=== PATIENT | female | born 1980 | race African-American/Black ===

== ENCOUNTER 2016-08-01 20:13 | Emergency (ER) | payer SELFPAY ==
[~2016-08-01] VITALS: Ht 167.6 cm; Wt 90.7 kg
[~2016-08-01 20:13] MED LIST: COLACE100 MG ORAL; IBUPROFEN600 MG ORAL; NKM; NORCO 5-325 TA1 EACH ORAL; ZOFRAN ODT4 MG ORAL
[2016-08-01 21:17] VITALS: BP 133/88
[2016-08-01] MEDS ORDERED: Ciprofloxacin 500mg tab ORAL ONE (21:45)
[2016-08-01] MEDS ORDERED: Pseudoephedrine 30mg tab ORAL ONE (21:45)
[2016-08-01] MEDS ORDERED: CORTISPORIN EAR10 ML LEFT EAR (21:48)
[2016-08-01] MEDS ORDERED: CHLORPHENIRAMINE4 M1 PO (21:48)
[2016-08-01] MEDS ORDERED: CIPRO500 MG PO (21:48)
[2016-08-01] MEDS ORDERED: IBUPROFEN600 MG ORAL (21:48)
[2016-08-01] MEDS ORDERED: TRAMADOL HCL50 MG ORAL (21:48)
[2016-08-01 21:52] VITALS: BP 133/88
--- NOTE | 2016-08-01 21:54 | Emergency Room Report ---
History of Present Illness General Chief Complaint: Earache Source: Patient Present Illness HPI Patient presents with left ear pain. It started this morning. She is working at a refinery and uses earplugs. She believes earplugs fell out yesterday and she was exposed to loud noises. She denies any fever. The pain radiates from her ear down into side of her neck. Pain 10/10, sharp and pressure, constant. No URI symptoms. Some headache from ear pain. No NVD, dysuria, trauma, change in hearing (except transiently after loud noise). Allergies: Coded Allergies: No Known Allergies (Unverified , 06/28/14) Patient History Past Medical History: see triage record Social History: Denies: smoking Social History Narrative works at [employer] Last Menstrual Period: 07/08/16 Now: No Reviewed Nursing Documentation: PMH: Agreed, PSxH: Agreed Nursing Documentation-PMH Past Medical History: No Stated History Hx Hypertension: No Hx Diabetes: No Review of Systems All Other Systems: negative except mentioned in HPI Physical Exam Vital Signs Date Time Temp Pulse Resp B/P Pulse Ox O2 Delivery O2 Flow Rate FiO2 08/01/16 20:50 97.7 105 15 133/88 100 Room Air General Appearance: well appearing, no apparent distress, GCS 15, non-toxic Head: normocephalic, atraumatic Eyes: bilateral eye PERRL, bilateral eye normal inspection ENT: hearing grossly normal, normal pharynx, normal voice, moist mucus membranes, other - L TM with some fluid. Pinna slight tender with pulling. Minimal mastoid tenderness. Neck: full range of motion, supple, no meningismus, no bony tend Respiratory: lungs clear, no respiratory distress, speaking full sentences Cardiovascular #1: regular rate, rhythm Cardiovascular #2: 2+ radial (R) Gastrointestinal: normal inspection Musculoskeletal: digits/nails normal, gait/station normal, normal range of motion Neurologic: alert, oriented x3, normal gait, grossly normal Psychiatric: mood/affect normal Skin: no rash Medical Decision Making Diagnostic Impression: Primary Impression: Earache, left ER Course Patient presents with ear pain L. DDx: otitis media, externa, mastoiditis amongst others. Exam c/w both otitis media and externa. Will tx with cipro, drops, decongestant and analgesia. Patient stable for outpatient observation and treatment. Last Vital Signs Date Time Temp Pulse Resp B/P Pulse Ox O2 Delivery O2 Flow Rate FiO2 08/01/16 21:52 97.7 86 18 133/88 100 Room Air Status: improved Disposition: HOME, SELF-CARE Condition: Improved Scripts Neomycin/Polymyxin B Sulf/Hc* (CORTISPORIN EAR SOLUTION*) 10 Ml Solution 3 DROP LEFT EAR QID, #10 ML 0 Refills Prov: Giovani Geronimo M.D. 08/01/16 Chlorpheniramine Maleate (Chlorpheniramine Maleate) 4 Mg Tablet 4 MG PO Q6HR Y for congestion, #14 TAB Prov: Giovani Geronimo M.D. 08/01/16 Tramadol Hcl* (ULTRAM*) 50 Mg Tablet 50 MG ORAL Q6H Y for For Pain, #6 TAB 0 Refills Prov: Giovani Geronimo M.D. 08/01/16 Ibuprofen* (MOTRIN*) 600 Mg Tablet 600 MG ORAL Q6H Y for For Pain, #20 TAB Prov: Giovani Geronimo M.D. 08/01/16 Ciprofloxacin* (CIPRO*) 500 Mg Tablet 500 MG PO BID, #14 TAB Prov: Giovani Geronimo M.D. 08/01/16 Departure Forms: Return to Work Return to Work in (Days): 2 Return to Work Date: Aug 03, 2016 Patient Instructions: Earache Additional Instructions: This infection might involve both the outer and inner ear. See your doctor in the next 2 days. Giovani Geronimo M.D. Aug 01, 2016 21:54
== END 2016-08-01 21:52 | disposition home or self-care (01) ==
LOC: EMR 21:25
DX: H66.92 Otitis media, unspecified, left ear (principal); H60.92 Unspecified otitis externa, left ear
CPT/HCPCS: 99284

== ENCOUNTER 2020-02-09 08:29 | Emergency (ER) | payer BC ==
[~2020-02-09] VITALS: Ht 165.1 cm; Wt 127.0 kg
[~2020-02-09 08:29] MED LIST changes: +CHLORPHENIRAMINE4 M1 PO; +CIPRO500 MG PO; +CORTISPORIN EAR10 ML LEFT EAR; +TRAMADOL HCL50 MG ORAL
--- NOTE | 2020-02-09 08:45 | NUR ---
ED Nurse Note: Pt walked in from home c/o heart paliplitations that started in the monring. Pt also reports difficulty walking long distances without feeling lightheaded. Pt c/o soreness on back of bilateral calves x 2 days. Pt had bariatric surgery on 02/03 at [facility]. Respirations even and unlabored on room air. Vitals stable as documented. A+Ox4, speaking in full sentences, ambulatory with steady gait.
--- NOTE | 2020-02-09 08:50 | Emergency Room Report ---
History of Present Illness General Chief Complaint: Palpitations Source: Patient Present Illness HPI Patient is a 39-year-old male who presents after increased palpitations and bilateral lower extremity soreness. Prior history of gastric sleeve surgery Tuesday. Reports having some decreased bowel movements. Denies any nausea or vomiting or abdominal pain. Had no prior known cardiac history. she denies any new leg swelling. Had laparoscopic procedure. This was performed at [facility]. She had negative coronavirus testing last week. Denies any fever. Allergies: Coded Allergies: AMOXICILLIN (Verified Allergy, Unknown, 02/09/20) PENICILLINS (Verified Allergy, Unknown, 02/09/20) COVID-19 Screening Contact w/high risk pt: No Experienced COVID-19 symptoms?: No COVID-19 Testing performed [employer]ODUCTION [employer]: Yes COVID-19 Screening: Negative COVID-19 COVID-19 Testing Source: 02/04/20 Patient History Past Medical History: see triage record Last Menstrual Period: 01/21/20 Now: No Reviewed Nursing Documentation: PMH: Agreed; PSxH: Agreed Nursing Documentation-PMH Past Medical History: No History, Except For Hx Hypertension: No Hx Diabetes: No Review of Systems All Other Systems: negative except mentioned in HPI Physical Exam Vital Signs Date Time Temp Pulse Resp B/P (MAP) Pulse Ox O2 Delivery O2 Flow Rate FiO2 02/09/20 08:40 96.8 91 18 115/81 (92) 99 Room Air Sp02 EP Interpretation: reviewed, normal General Appearance: normal inspection, well appearing, no apparent distress, alert, GCS 15, obese Head: atraumatic ENT: normal ENT inspection, hearing grossly normal, normal voice Neck: normal inspection, full range of motion, supple, no bony tend Respiratory: normal inspection, lungs clear, normal breath sounds, no respiratory distress, no retraction, no wheezing Cardiovascular #1: regular rate, rhythm, no edema Gastrointestinal: normal inspection, normal bowel sounds, non tender, soft, no guarding, no hernia, other - Healing incisions with skin glue no erythema Genitourinary: no CVA tenderness Musculoskeletal: normal inspection, back normal, normal range of motion Neurologic: alert, motor strength/tone normal, record label intern III-XII nml as tested, oriented x3, responsive, speech normal, normal inspection Psychiatric: normal inspection, judgement/insight normal, mood/affect normal Skin: no rash Medical Decision Making Diagnostic Impression: Primary Impression: Palpitations Additional Impression: Dehydration, mild ER Course Presented for bilateral lower extremity pain as well as palpitations. Differential diagnosis include was not limited to dehydration, anemia, myocardial infarction, pulmonary embolism among others. Because of complexity of patient's case laboratory tests and imaging studies were ordered.Laboratory testing was unremarkable other mild elevation of the BUN and creatinine. Patient started on IV fluids. Duplex ultrasound showed no evidence of deep venous thrombosis. EKG interpreted by me showed normal sinus rhythm with a rate of [address] or T wave changes. Patient it was noted to be taking some narcotic pain medication due to recent surgery. Patient was advised to reduce her dosages of medications. No evidence of any abdominal tenderness or discomfort. Patient was advised to return if she had any worsening of condition or other concerns. All questions were answered and patient was agreeable with discharge plan. Patient states that she will follow- up with Dr. Cunningham on Tuesday. This medical record is generated with [employer] warehouse order selector software. There may be some warehouse order selector discrepancies related to use of this software Labs Test 02/09/20 09:00 White Blood Count 6.0 K/UL (4.8-10.8) Red Blood Count 4.89 M/UL (4.20-5.40) Hemoglobin 14.0 G/DL (12.0-16.0) Hematocrit 42.9 % (37.0-47.0) Mean Corpuscular Volume 88 FL (80-99) Mean Corpuscular Hemoglobin 28.6 PG (27.0-31.0) Mean Corpuscular Hemoglobin Concent 32.6 G/DL (32.0-36.0) Red Cell Distribution Width 13.0 % (11.6-14.8) Platelet Count 296 K/UL (150-450) Mean Platelet Volume 6.6 FL (6.5-10.1) Neutrophils (%) (Auto) 49.0 % (45.0-75.0) Lymphocytes (%) (Auto) 38.0 % (20.0-45.0) Monocytes (%) (Auto) 9.0 % (1.0-10.0) Eosinophils (%) (Auto) 2.5 % (0.0-3.0) Basophils (%) (Auto) 1.5 % (0.0-2.0) Prothrombin Time 11.3 SEC (9.30-11.50) Prothromb Time International Ratio 1.0 (0.9-1.1) Activated Partial Thromboplast Time 30 SEC (23-33) Urine Color Yellow Urine Appearance Slightly cloudy Urine pH 5 (4.5-8.0) Urine Specific [place] 1.030 (1.005-1.035) Urine Protein 1+ (NEGATIVE) Urine Glucose (UA) Negative (NEGATIVE) Urine Ketones 3+ (NEGATIVE) Urine Blood Negative (NEGATIVE) Urine Nitrite Negative (NEGATIVE) Urine Bilirubin Negative (NEGATIVE) Urine Urobilinogen Normal MG/DL (0.0-1.0) Urine Leukocyte Esterase Negative (NEGATIVE) Urine RBC 0-2 /HPF (0 - 2) Urine WBC 0-2 /HPF (0 - 2) Urine Squamous Epithelial Cells Occasional /LPF Urine Bacteria Occasional /HPF (NONE) Sodium Level 140 MMOL/L (136-145) Potassium Level 3.7 MMOL/L (3.5-5.1) Chloride Level 102 MMOL/L (98-107) Carbon Dioxide Level 25 MMOL/L (21-32) Anion Gap 13 mmol/L (5-15) Blood Urea Nitrogen 19 mg/dL (7-18) Creatinine 1.2 MG/DL (0.55-1.30) Estimat Glomerular Filtration Rate > 60 mL/min (>60) Glucose Level 76 MG/DL (74-106) Calcium Level 9.5 MG/DL (8.5-10.1) Troponin I 0.000 ng/mL (0.000-0.056) Lipase 216 U/L (73-393) EKG Diagnostic Results Rate: normal - 87 Rhythm: NSR ST Segments: no acute changes Last Vital Signs Date Time Temp Pulse Resp B/P (MAP) Pulse Ox O2 Delivery O2 Flow Rate FiO2 02/09/20 08:40 96.8 91 18 115/81 (92) 99 Room Air Status: improved Disposition: HOME, SELF-CARE Condition: Stable Alan Nguyen MD Feb 09, 2020 08:49
[2020-02-09 09:00] VITALS: BP 112/76
--- NOTE | 2020-02-09 09:32 | NUR ---
ED Nurse Note: US @ bedside
[2020-02-09 09:44] LABS: BASOPHILS % (AUTO) 1.5 % (0.0-2.0); EOSINOPHILS % (AUTO) 2.5 % (0.0-3.0); HEMATOCRIT 42.9 % (37.0-47.0); MEAN CORPUSCULAR VOLUME 88 FL (80-99); PLATELET COUNT 296 K/UL (150-450); RED BLOOD COUNT 4.89 M/UL (4.20-5.40)
[2020-02-09 09:45] LABS: APPEARANCE,URINE SLIGHTLY CLOUDY; BILIRUBIN, URINE NEGATIVE (NEGATIVE); COLOR,URINE YELLOW; GLUCOSE, URINE (UA) NEGATIVE (NEGATIVE); KETONES,URINE 3+ (NEGATIVE); LEUKOCYTE ESTERASE ,URINE NEGATIVE (NEGATIVE); NITRITE,URINE NEGATIVE (NEGATIVE); PH,URINE 5 (4.5-8.0); PROTEIN,URINE 1+ (NEGATIVE); UROBILINOGEN,URINE NORMAL MG/DL (0.0-1.0)
--- NOTE | 2020-02-09 09:58 | Diagnostic Imaging Report ---
EXAM: US Duplex Bilateral Lower Extremities Veins CLINICAL HISTORY: PAIN TECHNIQUE: Real-time duplex ultrasound scan of the bilateral lower extremity veins integrating B-mode two-dimensional vascular structure, Doppler spectral analysis, color flow Doppler imaging and compression. COMPARISON: No relevant prior studies available. FINDINGS: Right deep veins: Unremarkable. No DVT in the right common femoral, femoral, proximal deep femoral or popliteal veins. The veins demonstrate normal color flow, are normally compressible, with normal phasic flow and/or augmentation response. Right superficial veins: Unremarkable. No thrombus in the visualized right great saphenous vein. Left deep veins: Unremarkable. No DVT in the left common femoral, femoral, proximal deep femoral or popliteal veins. The veins demonstrate normal color flow, are normally compressible, with normal phasic flow and/or augmentation response. Left superficial veins: Unremarkable. No thrombus in the visualized left great saphenous vein. Soft tissues: No acute findings. No popliteal cyst. IMPRESSION: Normal bilateral lower extremity duplex venous ultrasound.
[2020-02-09 10:08] LABS: ANION GAP 13 mmol/L (5-15); BLOOD UREA NITROGEN 19 mg/dL (7-18); CALCIUM 9.5 MG/DL (8.5-10.1); CARBON DIOXIDE 25 MMOL/L (21-32); CHLORIDE 102 MMOL/L (98-107); CREATININE 1.2 MG/DL (0.55-1.30); POTASSIUM 3.7 MMOL/L (3.5-5.1); SODIUM 140 MMOL/L (136-145)
[2020-02-09 10:21] LABS: ALANINE AMINOTRANSFERASE 52 U/L (12-78); ALBUMIN 3.6 G/DL (3.4-5.0); ALBUMIN/GLOBULIN RATIO 0.8 (1.0-2.7); ALKALINE PHOSPHATASE 58 U/L (46-116); ASPARTATE AMINO TRANSFERASE 22 U/L (15-37); BILIRUBIN,TOTAL 0.9 MG/DL (0.2-1.0)
[2020-02-09 10:41] VITALS: BP_SYST 101; BP_SYST 131; BP_SYST 133; BP_DIAS 50; BP_DIAS 78; BP_DIAS 85
--- NOTE | 2020-02-09 10:43 | NUR ---
Orthostatic VS lying - 82 heart rate. 133/85 bp sitting - 83 heart rate. 131/50 bp standing - 102 heart rate. 101/78. ED MD aware. Pt is asymptomatic. Denies dizziness/lightheadedness.
[2020-02-09 11:45] VITALS: BP 110/81
--- NOTE | 2020-02-09 11:45 | NUR ---
ER DISCHARGE NOTE: Patient is cleared to be discharged per ERMD, pt is aox4, on room air, with stable vital signs. pt was given dc and prescription instructions, pt was able to verbalize understanding, pt id band and iv site removed without complications. pt is able to ambulate with steady gait. pt took all belongings.
== END 2020-02-09 11:45 | disposition home or self-care (01) ==
LOC: EMR 08:57
DX: R00.2 Palpitations (principal); E86.0 Dehydration; Z88.0 Allergy status to penicillin; Z98.84 Bariatric surgery status; E66.9 Obesity, unspecified; Z68.41 Body mass index [BMI] 40.0-44.9, adult
CPT/HCPCS: 36415; 80053; 81001; 83690; 84443; 84484; 85025; 85610; 85730; 86850; 86900; 86901; 93005; 93970; 96360; 99284